=== PATIENT | male | born 1945 | race Caucasian/White ===

== ENCOUNTER 2017-09-21 07:05 | Day surgery (SDC) | payer MEDICARE ==
[2017-09-19 10:52] VITALS: BP 129/64
[2017-09-19 11:01] LABS: BASOPHILS % (AUTO) 1.2 % (0.0-5.0); EOSINOPHILS % (AUTO) 3.6 % (0.0-8.0); HEMATOCRIT 33.9 % (42-54); LYMPHOCYTES % (AUTO) 14.7 % (21.0-51.0); MEAN CORPUSCULAR HEMOGLOBIN 30.4 pg (27.0-33.0); MEAN CORPUSCULAR HGB CONC 33.1 g/dL (32.0-36.0); MEAN CORPUSCULAR VOLUME 91.8 fL (79-99); MONOCYTES % (AUTO) 10.8 % (3.0-13.0); NEUTROPHILS % (AUTO) 69.7 % (40.0-77.0); PLATELET COUNT (AUTO) 190 K/uL (130-400); RED CELL DISTRIBUTION WIDTH 14.7 % (11.0-15.5); WHITE BLOOD COUNT (AUTO) 6.4 K/uL (4.8-10.8)
[2017-09-19 11:02] LABS: APPEARANCE,URINE Clear (CLEAR); BILIRUBIN,URINE Negative (NEGATIVE); COLOR,URINE Yellow (YELLOW); GLUCOSE, URINE (UA) Negative (NEGATIVE); KETONES,URINE Negative (NEGATIVE); LEUKOCYTE ESTERASE ,URINE Small (NEGATIVE); NITRATE,URINE Positive (NEGATIVE); OCCULT BLOOD,URINE Negative (NEGATIVE); PH,URINE 6.5 (5.0-8.0); PROTEIN,URINE Negative (NEGATIVE)
[2017-09-19 11:08] LABS: CREATININE 1.2 mg/dL (0.5-1.5); POTASSIUM 4.4 mmol/L (3.5-5.1)
[2017-09-19 11:20] LABS: BACTERIA,URINE Rare /HPF (None Seen); RBC,URINE 0-1 /HPF (0-1); SQUAMOUS EPITHELIAL CELL,UR Rare /LPF (0-2)
[2017-09-19 11:26] LABS: INR 1.02 (0.85-1.15); PARTIAL THROMBOPLASTIN TIME 24.7 SEC (26.3-35.5); PROTHROMBIN TIME 10.7 SEC (9.6-11.6)
[~2017-09-21] VITALS: Ht 161.3 cm; Wt 105.2 kg
[2017-09-21] VITALS (7 sets, daily range): BP systolic 116–162; BP diastolic 66–86
[~2017-09-21 07:05] MED LIST: ALPR0.5T8 PO; ATOR-2 PO; DOXA8TAB81 PO; ENAL5TAB PO; FINA5TAB41 PO; FLUO40CA7 PO; METO25TA6 PO; OMEP20TA2 PO; OXYC15TA82 PO; SODIUM CHLORIDE 0.9% 500ML 500 ML IV SCH; TRIA1TAB3 PO
[2017-09-21] MEDS ORDERED: SODIUM CHLORIDE 0.9% 1000ML 1,000 ML IV ONE (08:16)
[2017-09-21] MEDS ORDERED: BIVALIRUDIN 250 MG/VIAL IV ONE ×2 (08:54→12:12)
[2017-09-21] MEDS ORDERED: NITROGLYCERIN 5 MG/ML 10 ML VIAL IV ONE (08:54)
[2017-09-21] MEDS ORDERED: IOPAMIDOL-370 100 ML VIAL IV ONE (08:55)
[2017-09-21] MEDS ORDERED: LIDOCAINE HCL 2% 20ML ONE ×2 (08:55→10:00)
[2017-09-21] MEDS ORDERED: IOPAMIDOL-370 75 ML VIAL IV ONE (08:55)
[2017-09-21] MEDS ORDERED: FENTANYL CITRATE PF 50 MCG/1 ML 2ML VIAL ONE ×2 (09:21→11:24)
[2017-09-21] MEDS ORDERED: VERAPAMIL HCL 2.5 MG/ML VIAL IVP ONE ×2 (09:43→09:54)
[2017-09-21] MEDS ORDERED: ATROPINE SULFATE 0.1 MG/ML 10 ML SYG IVP ONE (10:42)
[2017-09-21] MEDS ORDERED: HEPARIN SODIUM 1000UNIT/ML 10ML VIAL ONE (11:13)
[2017-09-21] MEDS ORDERED: SODIUM CHLORIDE 0.9% 1000ML 1,000 ML IV SCH (11:47)
== END 2017-09-21 16:10 | disposition home or self-care (01) ==
LOC: DAH 07:05
PROVIDERS: ATTEND Internal Medicine Cardiovascular Disease
DX: I25.10 Atherosclerotic heart disease of native coronary artery without angina pectoris (principal); I10 Essential (primary) hypertension; E78.5 Hyperlipidemia, unspecified; F41.9 Anxiety disorder, unspecified; E66.9 Obesity, unspecified; Z68.34 Body mass index [BMI] 34.0-34.9, adult; Z88.8 Allergy status to other drugs, medicaments and biological substances
CPT/HCPCS: 36415; 71010; 80048; 81001; 85025; 85610; 85730; 87088; 87186; 93005; 93454; 99156; 99157; A4606; A4649; C1769 ×5; C1894 ×3; J0461; J0583 ×2; J1644 ×4; J3010 ×2; J3490 ×5; J7030; Q9967 ×2; 93458